=== PATIENT | female | born 1965 | race Two or more races ===

== ENCOUNTER 2023-08-16 15:08 | Emergency (ER) | payer OTHER ==
[~2023-08-16] VITALS: Ht 170.2 cm; Wt 74.8 kg
[2023-08-16] MEDS ORDERED: ECOTRIN81 MG (15:35)
[2023-08-16] MEDS ORDERED: GLUMETZA1000 MG (15:35)
[2023-08-16] MEDS ORDERED: TRULICITY3 MG/0.5 M SQ (15:36)
[2023-08-16] MEDS ORDERED: LIPITOR40 M1 PO (15:36)
== END 2023-08-16 17:57 | disposition home or self-care (01) ==
LOC: ER 15:08
DX: U07.1 COVID-19 (principal); J06.9 Acute upper respiratory infection, unspecified; Z91.041 Radiographic dye allergy status

== ENCOUNTER 2024-02-22 12:05 | Emergency (ER) | payer OTHER ==
[~2024-02-22] VITALS: Ht 170.2 cm; Wt 74.8 kg
[~2024-02-22 12:05] MED LIST: ECOTRIN81 MG; GLUMETZA1000 MG; LIPITOR40 M1 PO; TRULICITY3 MG/0.5 M SQ
[2024-02-22] MEDS ORDERED: XIGDUO XR 5 MG1 EAC1 (12:32)
[2024-02-22] MEDS ORDERED: CEFAZOLIN SODIUM 1,000 MG VIAL IM ONE (13:45)
[2024-02-22] MEDS ORDERED: CEFAZOLIN SODIUM 1,000 MG VIAL ONE (13:48)
== END 2024-02-22 14:05 | disposition home or self-care (01) ==
LOC: ER 12:07
DX: L08.89 Other specified local infections of the skin and subcutaneous tissue (principal); E11.9 Type 2 diabetes mellitus without complications; Z79.84 Long term (current) use of oral hypoglycemic drugs; Z91.041 Radiographic dye allergy status